=== PATIENT | male | born 1945 | race Caucasian/White ===

== ENCOUNTER 2016-11-01 14:40 | Emergency (ER) | payer MEDICARE, OTHER ==
[~2016-11-01] VITALS: Ht 177.8 cm; Wt 89.0 kg
[2016-11-01 14:44] VITALS: Ht 177.8 cm; Wt 89.0 kg
[2016-11-01] MEDS ORDERED: METHYLPREDNISOLONE 125 MG INJ IV STA (15:06)
[2016-11-01] MEDS ORDERED: ALBUTEROL 0.083% (NEB) 2.5 MG/3 ML AMP NEB STA (15:06)
[2016-11-01] MEDS ORDERED: IPRATROPIUM (NEB) 0.5 MG/2.5 ML AMP NEB STA (15:06)
[2016-11-01 15:31] LABS: BASOPHILS % 0.6 % (0.0-2.0); EOSINOPHILS # 0.1 10^3/ul (0.0-0.5); EOSINOPHILS % 1.7 % (0.0-7.0); HEMATOCRIT 45.7 % (42.0-52.0); HEMOGLOBIN 15.6 g/dl (14.0-18.0); LYMPHOCYTES # 3.5 10^3/ul (0.8-2.9); LYMPHOCYTES % 49.6 % (15.0-51.0); MEAN CORPUSCULAR HEMOGLOBIN 31.1 pg (29.0-33.0); MEAN CORPUSCULAR HGB CONC 34.1 g/dl (32.0-37.0); MEAN CORPUSCULAR VOLUME 91.2 fl (82.0-101.0); MEAN PLATELET VOLUME 8.7 fl (7.4-10.4); MONOCYTE # 0.6 10^3/ul (0.3-0.9); MONOCYTES % 7.7 % (0.0-11.0); NEUTROPHIL # 2.9 10^3/ul (1.6-7.5); NEUTROPHILS % 40.1 % (39.0-77.0); PLATELET COUNT 394 10^3/UL (140-415); RED BLOOD COUNT 5.01 10^6/ul (4.70-6.10); RED CELL DISTRIBUTION WIDTH 13.3 % (11.5-14.5); WHITE BLOOD COUNT 7.1 10^3/ul (4.8-10.8)
[2016-11-01] MEDS ORDERED: FENO200 PO (15:39)
[2016-11-01] MEDS ORDERED: LEVO500T10 PO (15:40)
[2016-11-01] MEDS ORDERED: TAMS0.4C2 PO (15:41)
[2016-11-01] MEDS ORDERED: SITA1TAB5 PO (15:42)
[2016-11-01] MEDS ORDERED: DAPA10TA PO (15:43)
[2016-11-01] MEDS ORDERED: GLIM4TAB PO (15:43)
[2016-11-01] MEDS ORDERED: ATOR20TA38 PO (15:44)
[2016-11-01] MEDS ORDERED: LISI20TA11 PO (15:44)
[2016-11-01 15:51] LABS: INR 0.89; PT RATIO 0.9
[2016-11-01 15:52] LABS: PARTIAL THROMBOPLASTIN TIME 29.2 Sec (25.0-35.0)
--- NOTE | 2016-11-01 15:52 | RADRPT ---
PROCEDURE: XR Chest. CLINICAL INDICATION: Chest pain. TECHNIQUE: Single frontal view. COMPARISON: None. FINDINGS: The lungs are clear. The heart size is normal. There is no pleural effusion. There is no pneumothorax. IMPRESSION: 1. Normal chest radiograph. RPTAT: QQ .Oli Garcia MD, Date Time Electronically viewed and signed by .Oli Garcia MD, on 11/01/2016 15:52 .R/
[2016-11-01 16:07] LABS: ALANINE AMINOTRANSFERASE 109 IU/L (13-69); ALBUMIN 5.3 g/dl (3.3-4.9); ALBUMIN/GLOBULIN RATIO 1.29; ALKALINE PHOSPHATASE 63 IU/L (42-121); ANION GAP 20 (8-16); ASPARTATE AMINO TRANSFERASE 92 IU/L (15-46); BILIRUBIN,INDIRECT 0.1 mg/dl (0-1.1); BILIRUBIN,TOTAL 0.1 mg/dl (0.2-1.3); BLOOD UREA NITROGEN 28 mg/dl (7-20); CALCIUM 9.9 mg/dl (8.4-10.2); CARBON DIOXIDE 23 mmol/L (21-31); CHLORIDE 98 mmol/L (97-110); CREATININE 1.28 mg/dl (0.61-1.24); GLUCOSE 160 mg/dl (70-220); POTASSIUM 3.9 mmol/L (3.5-5.1); SODIUM 137 mmol/L (135-144); TOTAL PROTEIN 9.4 g/dl (6.1-8.1)
[2016-11-01 16:11] VITALS: BP 151/76; PULSE 88; RESP 19; TEMP 98.3
[2016-11-01 16:19] LABS: TROPONIN-I < 0.012 ng/ml (0.00-0.12)
--- NOTE | 2016-11-01 16:25 | ERD ---
ER Documentation Chief Complaint Date/Time DATE: 11/01/16 TIME: 16:25 Chief Complaint Sent from MD for eval chest pain HPI This is a 71-year-old male who presents to the emergency room for evaluation of chest pain and mild shortness of breath. According to this patient and the patient's daughter who is giving the majority of the history this patient has been having some wheezing and has been coughing up yellow sputum. This patient states that he has chest pain about the chest pain is worse when he coughs. He denies any radiation of the pain and states that when he coughs he is mildly short of breath. The patient denies any nausea, vomiting, fevers, or diarrhea associated with this and came to the emergency room for further evaluation. ROS All systems reviewed and are negative except as per history of present illness. Medications Home Meds Reported Medications Atorvastatin Calcium* (Atorvastatin Calcium*) 20 Mg Tablet, 20 MG PO QHS, #30 TAB 11/01/16 Lisinopril* (Lisinopril*) 20 Mg Tablet, 20 MG PO DAILY, #30 TAB 11/01/16 Dapagliflozin Propanediol (Farxiga) 10 Mg Tablet, 10 MG PO DAILY, #30 TAB 11/01/16 Glimepiride* (Glimepiride*) 4 Mg Tablet, 4 MG PO WITH BREAKFAST DINNE, TAB 11/01/16 Sitagliptin Phos/Metformin HCl (Janumet 50-1,000 mg Tablet) 1 Each Tablet, 1 EACH PO BID, TAB 11/01/16 Tamsulosin Hcl* (Tamsulosin Hcl*) 0.4 Mg Cap.er.24h, 0.4 MG PO HS, CAP 11/01/16 Levofloxacin* (Levofloxacin*) 500 Mg Tablet, 500 MG PO DAILY, TAB START 10/30/16 FOR 7 DAYS 11/01/16 Fenofibrate* (Fenofibrate*) 200 Mg Cap, 200 MG PO DAILY, CAP 11/01/16 Allergies Allergies: Coded Allergies: No Known Allergy (Unverified , 11/01/16) PMhx/Soc History of Surgery: Yes (Hernia) Anesthesia Reaction: No Hx Neurological Disorder: No Hx Respiratory Disorders: No Hx Cardiac Disorders: Yes (HTN, Cholesterol) Hx Psychiatric Problems: No Hx Miscellaneous Medical Probl: Yes (DM) Hx Alcohol Use: No Hx Substance Use: No Hx Tobacco Use: No Smoking Status: Never smoker Physical Exam Vitals Vital Signs Date Time Temp Pulse Resp B/P Pulse Ox O2 Delivery O2 Flow Rate FiO2 11/01/16 16:11 98.3 88 19 151/76 96 Room Air 11/01/16 15:18 Nasal Cannula 2 11/01/16 15:15 75 18 96 21 11/01/16 14:44 98.3 79 20 155/81 95 Physical Exam INITIAL VITAL SIGNS: Reviewed by me GENERAL: The patient is well developed and appropriate for usual state of health in no apparent distress HEENT: Pupils equal, round, and reactive to light. EOMI. There is no scleral icterus. NECK: C-spine is soft and supple, there is no meningismus. There is no cervical lymphadenopathy. LUNGS: Coarse breath sounds bilaterally with expiratory wheezing auscultated in the bilateral lower lung HEART: Regular rate and rhythm, no murmurs, clicks, rubs or gallops. ABDOMEN: Soft, non-tender, non-distended. There are bowel sounds in all four quadrants. No rebound or guarding. EXTREMITIES: There is no peripheral cyanosis or edema. No focal swelling or erythema. NEUROLOGICAL: The patient moves all four extremities with 5/5 strength. Cranial nerves II - XII are intact. Normal gait. Alert and oriented SKIN: There is no apparent rash or petechiae. HEME/LYMPHATIC: There is no evidence of excessive bruising or lymphedema. PSYCHIATRIC: The patient does not appear anxious or depressed. Result Diagram: 11/01/16 1514 11/01/16 1514 Results 24 hrs Laboratory Tests Test 11/01/16 15:14 White Blood Count 7.110^3/ul Red Blood Count 5.0110^6/ul Hemoglobin 15.6g/dl Hematocrit 45.7% Mean Corpuscular Volume 91.2fl Mean Corpuscular Hemoglobin 31.1pg Mean Corpuscular Hemoglobin Concent 34.1g/dl Red Cell Distribution Width 13.3% Platelet Count 72692^3/UL Mean Platelet Volume 8.7fl Neutrophils % 40.1% Lymphocytes % 49.6% Monocytes % 7.7% Eosinophils % 1.7% Basophils % 0.6% Nucleated Red Blood Cells % 0.0/100WBC Neutrophils # 2.910^3/ul Lymphocytes # 3.510^3/ul Monocytes # 0.610^3/ul Eosinophils # 0.110^3/ul Basophils # 0.010^3/ul Nucleated Red Blood Cells # 0.010^3/ul Prothrombin Time 12.0Sec Prothrombin Time Ratio 0.9 INR International Normalized Ratio 0.89 Activated Partial Thromboplast Time 29.2Sec Sodium Level 137mmol/L Potassium Level 3.9mmol/L Chloride Level 98mmol/L Carbon Dioxide Level 23mmol/L Anion Gap 20 Blood Urea Nitrogen 28mg/dl Creatinine 1.28mg/dl Glucose Level 160mg/dl Calcium Level 9.9mg/dl Total Bilirubin 0.1mg/dl Direct Bilirubin 0.00mg/dl Indirect Bilirubin 0.1mg/dl Aspartate Amino Transf (AST/SGOT) 92IU/L Alanine Aminotransferase (ALT/SGPT) 109IU/L Alkaline Phosphatase 63IU/L Troponin I < 0.012ng/ml Total Protein 9.4g/dl Albumin 5.3g/dl Globulin 4.10g/dl Albumin/Globulin Ratio 1.29 Current Medications Medications (Trade) Dose Ordered Sig/Apple Route PRN Reason Start Time Stop Time Status Last Admin Dose Admin Albuterol (Proventil 0.083% (Neb)) 5 mg ONCE STAT NEB 11/01/16 15:06 11/01/16 15:22 DC 11/01/16 15:15 Ipratropium [place] (Atrovent 0.02% (Neb)) 0.5 mg ONCE STAT NEB 11/01/16 15:06 11/01/16 15:22 DC 11/01/16 15:15 Methylprednisolone Sodium Succinate (Solu-Medrol) 125 mg ONCE STAT IV 11/01/16 15:06 11/01/16 15:22 DC 11/01/16 15:10 Procedures/MDM EKG: #1 Rate/Rhythm: [Normal Sinus Rhythm] QRS, ST, T-waves: [No changes consistent w/ acute ischemia] Impression: [No evidence of ischemia or arrhythmia] EKG: #2 Rate/Rhythm: [Normal Sinus Rhythm] QRS, ST, T-waves: [No changes consistent w/ acute ischemia] Impression: [No evidence of ischemia or arrhythmia] Chest X-ray 1V Interpreted by me: Soft Tissue: No acute abnormalities Bones: No acute abnormalities Mediastinum/Cardiac Silhouette/Lungs: [No acute abnormalities] This 71-year-old male presents to the emergency room for evaluation of chest pain, cough productive of yellow sputum, and mild shortness of breath. When I evaluated this patient originally he was in no respiratory distress, however he did have expiratory wheezing bilaterally. The patient did have a cardiac workup here in the emergency room including 2 EKGs which are nonischemic, troponin which was negative, and chest x-ray which is clear. The patient also was given a breathing treatment with albuterol, Atrovent, and was given Solu- Medrol here in the emergency room. Upon my reevaluation of this patient after his breathing treatment the patient has no wheezing and states he is feeling much better. I do feel the etiology of this patient's chest pain or shortness of breath is bronchitis. This patient will be discharged at this time with a prescription for albuterol, prednisone, and azithromycin with instructions to fill the azithromycin only if the patient continues to have a productive cough. Departure Diagnosis: Primary Impression: Acute bronchitis Additional Impressions: Chest pain Renal insufficiency Condition: Stable NADIA WICK DO Nov 01, 2016 16:25
[2016-11-01] MEDS ORDERED: ALBU8.5H3 INH (16:33)
[2016-11-01] MEDS ORDERED: AZIT250T94 PO (16:33)
[2016-11-01] MEDS ORDERED: PRED20TA PO (16:33)
== END 2016-11-01 16:42 | disposition home or self-care (01) ==
LOC: E/R 14:40
DX: J20.9 Acute bronchitis, unspecified (principal); N28.9 Disorder of kidney and ureter, unspecified; E11.9 Type 2 diabetes mellitus without complications; I10 Essential (primary) hypertension; Z79.84 Long term (current) use of oral hypoglycemic drugs
CPT/HCPCS: 71010; 80053; 84484; 85025; 85610; 85730; 93005; 94664; J2930; 36415; 96374